=== PATIENT | male | born 1980 | race Caucasian/White ===

== ENCOUNTER 2017-07-19 13:00 | Observation (INO) | payer MEDICAID, SELFPAY ==
[2017-07-19 13:14] VITALS: BP 136/90; PULSE 113; RESP 20; TEMP 37.3; O2SAT 97; BMI 36.9
--- NOTE | 2017-07-19 13:29 | HMH.EDUTC ---
[facility] [place] Disposition Clinical Impression: Dehydration, Tachycardia, Elevated liver enzymes, Viral syndrome Disposition: Still a Patient Condition on Discharge: Fair (sent to ed for eval) Time of Disposition: 11:00 Medical Decision Making Vital Signs: 07/19/17 13:14 07/19/17 14:02 07/19/17 17:43 Temperature 99.2 F 99.2 F Temperature Source Oral Oral Pulse Rate 99 H Pulse Rate [Right Radial] 113 H 113 H Respiratory Rate 20 20 Blood Pressure 137/88 Blood Pressure [Right Arm] 136/90 Blood Pressure [Right Radial Artery] 136/90 Blood Pressure Mean [Right Arm] 105 Blood Pressure Mean [Right Radial Artery] 105 Blood Pressure Source [Right Arm] Automatic Cuff Blood Pressure Source [Right Radial Artery] Automatic Cuff Blood Pressure Position [Right Arm] Sitting Blood Pressure Position [Right Radial Artery] Sitting 02 Sat by Pulse Oximetry 97 97 Oxygen Delivery Method Room Air Room Air - Lab Data Lab Results 07/19/17 13:35: Influenza Type A Ag Negative, Influenza Type B Ag Negative 07/19/17 13:45: WBC 15.5 H, RBC 4.77, Hgb 14.4, Hct 42.4, MCV 89.0, MCH 30.3, MCHC 34.0, RDW 13.0, Plt Count 234, MPV 7.6, Neut % (Auto) 82.2 H, Lymph % (Auto) 7.9 L, [place] % (Auto) 9.5 H, Eos % (Auto) 0.2, Baso % (Auto) 0.2, Neut # (Auto) 12.8 H, Lymph # (Auto) 1.2, [place] # (Auto) 1.5 H, Eos # (Auto) 0.0, Baso # (Auto) 0.0, Total Counted 100, Neutrophils % (Manual) 75, Band Neutrophils % 12.0 H, Lymphocytes % (Manual) 6 L, Monocytes % (Manual) 7, Platelet Estimate Normal, RBC Morphology Normal 07/19/17 13:45: Sodium 129 L, Potassium 3.7, Chloride 95 L, Carbon Dioxide 22, Anion Gap 15.7 H, BUN 9, Creatinine 1.25, Estimated Creat Clear 130, Estimated GFR 65, Est GFR ( Amer) 79, Glucose 132 H, Calcium 8.5, Total Bilirubin 1.5 H, AST 154 H, ALT 236 H, Alkaline Phosphatase 183 H, Total Creatine Kinase 58, CK-MB (CK-2) < 0.5, CK-MB (CK-2) Rel Index 0.9, Troponin I < 0.02, Total Protein 8.3 H, Albumin 3.1 L, Globulin 5.2 H, Albumin/Globulin Ratio 0.6 L, TSH 1.72, Free T4 1.47 H 07/19/17 14:20: Magnesium 2.0 07/19/17 14:45: Chlamy pneumoniae PCR Not detected, Adenovirus (PCR) Not detected, B.parapertussis DNA PCR Not detected, Coronavirus OC43 (PCR) Not detected, Coronavirus HKU1 (PCR) Not detected, Coronavirus 229E (PCR) Not detected, Coronavirus NL63 (PCR) Not detected, Human Metapneumovir PCR Not detected, Influenza A (H1) PCR Not detected, Influ A (H1N1/09) PCR Not detected, Influenza A (H3) PCR Not detected, Influenza Type A (PCR) Not detected, Influenza Type B (PCR) Not detected, M. pneumoniae (PCR) Not detected, Parainfluenza 1 (PCR) Not detected, Parainfluenza 2 (PCR) Not detected, Parainfluenza 3 (PCR) Not detected, Parainfluenza 4 (PCR) Not detected, RSV (PCR) Not detected, Entero/Rhino (PCR) Not detected 07/19/17 15:20: Urine Color Yellow, Urine Appearance Cloudy, Urine pH 6.0, Ur Specific [place] 1.020, Urine Protein 30, Urine Glucose (UA) Negative, Urine Ketones Trace, Urine Blood Trace-i, Urine Nitrate Negative, Urine Bilirubin Negative, Urine Urobilinogen 1.0, Ur Leukocyte Esterase Negative, Urine RBC Occasional, Urine WBC 3-5, Ur Squamous Epith Cells Occasional, Urine Bacteria 2+, Hyaline Casts Occasional 07/19/17 15:45: Lactic Acid 1.9 Result diagrams: 07/21/17 08:50 07/21/17 09:50 Orders (Tests/Meds): ED MEDICATIONS Discontinued Medications Generic Name Dose Route Start Last Admin Trade Name Freq PRN Reason Stop Dose Admin Acetaminophen 650 mg 07/19/17 17:31 07/20/17 22:19 Acetaminophen 325mg Tab PO 08/18/17 17:30 650 mg Q4HP PRN Administration As Needed for Fever or Pain Sodium Chloride 1,000 mls @ 999 mls/hr 07/19/17 14:45 07/19/17 14:55 Sod Chloride 0.9% 1000ml Bag IV 07/19/17 15:45 999 mls/hr .Q1H1M [place] Administration Sodium Chloride 1,000 mls @ 999 mls/hr 07/19/17 17:00 07/19/17 17:06 Sod Chloride 0.9% 1000ml Bag IV 07/19/17 18:00 999 mls/hr .Q1H1M [place] Administratio
--- NOTE | 2017-07-19 13:32 | ED_ITS ---
[facility] [place] Disposition Clinical Impression: Dehydration, Tachycardia, Elevated liver enzymes, Viral syndrome Disposition: Still a Patient Condition on Discharge: Fair (sent to ed for eval) Time of Disposition: 11:00 Medical Decision Making Vital Signs: 07/19/17 13:14 07/19/17 14:02 07/19/17 17:43 Temperature 99.2 F 99.2 F Temperature Source Oral Oral Pulse Rate 99 H Pulse Rate [Right Radial] 113 H 113 H Respiratory Rate 20 20 Blood Pressure 137/88 Blood Pressure [Right Arm] 136/90 Blood Pressure [Right Radial Artery] 136/90 Blood Pressure Mean [Right Arm] 105 Blood Pressure Mean [Right Radial Artery] 105 Blood Pressure Source [Right Arm] Automatic Cuff Blood Pressure Source [Right Radial Artery] Automatic Cuff Blood Pressure Position [Right Arm] Sitting Blood Pressure Position [Right Radial Artery] Sitting 02 Sat by Pulse Oximetry 97 97 Oxygen Delivery Method Room Air Room Air - Lab Data Lab Results 07/19/17 13:35: Influenza Type A Ag Negative, Influenza Type B Ag Negative 07/19/17 13:45: WBC 15.5 H, RBC 4.77, Hgb 14.4, Hct 42.4, MCV 89.0, MCH 30.3, MCHC 34.0, RDW 13.0, Plt Count 234, MPV 7.6, Neut % (Auto) 82.2 H, Lymph % (Auto ) 7.9 L, [place] % (Auto) 9.5 H, Eos % (Auto) 0.2, Baso % (Auto) 0.2, Neut # (Auto ) 12.8 H, Lymph # (Auto) 1.2, [place] # (Auto) 1.5 H, Eos # (Auto) 0.0, Baso # ( Auto) 0.0, Total Counted 100, Neutrophils % (Manual) 75, Band Neutrophils % 12.0 H, Lymphocytes % (Manual) 6 L, Monocytes % (Manual) 7, Platelet Estimate Normal, RBC Morphology Normal 07/19/17 13:45: Sodium 129 L, Potassium 3.7, Chloride 95 L, Carbon Dioxide 22, Anion Gap 15.7 H, BUN 9, Creatinine 1.25, Estimated Creat Clear 130, Estimated GFR 65, Est GFR ( Amer) 79, Glucose 132 H, Calcium 8.5, Total Bilirubin 1.5 H, AST 154 H, ALT 236 H, Alkaline Phosphatase 183 H, Total Creatine Kinase 58, CK-MB (CK-2) < 0.5, CK-MB (CK-2) Rel Index 0.9, Troponin I < 0.02, Total Protein 8.3 H, Albumin 3.1 L, Globulin 5.2 H, Albumin/Globulin Ratio 0.6 L, TSH 1.72, Free T4 1.47 H 07/19/17 14:20: Magnesium 2.0 07/19/17 14:45: Chlamy pneumoniae PCR Not detected, Adenovirus (PCR) Not detected, B.parapertussis DNA PCR Not detected, Coronavirus OC43 (PCR) Not detected, Coronavirus HKU1 (PCR) Not detected, Coronavirus 229E (PCR) Not detected, Coronavirus NL63 (PCR) Not detected, Human Metapneumovir PCR Not detected, Influenza A (H1) PCR Not detected, Influ A (H1N1/09) PCR Not detected , Influenza A (H3) PCR Not detected, Influenza Type A (PCR) Not detected, Influenza Type B (PCR) Not detected, M. pneumoniae (PCR) Not detected, Parainfluenza 1 (PCR) Not detected, Parainfluenza 2 (PCR) Not detected, Parainfluenza 3 (PCR) Not detected, Parainfluenza 4 (PCR) Not detected, RSV (PCR ) Not detected, Entero/Rhino (PCR) Not detected 07/19/17 15:20: Urine Color Yellow, Urine Appearance Cloudy, Urine pH 6.0, Ur Specific [place] 1.020, Urine Protein 30, Urine Glucose (UA) Negative, Urine Ketones Trace, Urine Blood Trace-i, Urine Nitrate Negative, Urine Bilirubin Negative, Urine Urobilinogen 1.0, Ur Leukocyte Esterase Negative, Urine RBC Occasional, Urine WBC 3-5, Ur Squamous Epith Cells Occasional, Urine Bacteria 2+ , Hyaline Casts Occasional 07/19/17 15:45: Lactic Acid 1.9 Result diagrams: 07/21/17 08:50 07/21/17 09:50 Orders (Tests/Meds): ED MEDICATIONS Discontinued Medications Generic Name Dose Route Start Last Admin Trade Name Freq PRN Reason Stop Dose Admin
[2017-07-19 13:35] LABS: UTC Influenza A Antigen Negative (Negative); UTC Influenza B Antigen Negative (Negative)
[2017-07-19 14:02] VITALS: BP 136/90; PULSE 113; RESP 20; TEMP 37.3; O2SAT 97; BMI 36.9
[2017-07-19 14:06] LABS: Basophils % 0.2 % (0.1-2.0); Eosinophils % 0.2 % (0.1-12.0); Hematocrit 42.4 % (42.0-52.0); Hemoglobin 14.4 g/dL (14.1-18.0); Lymphocytes # 1.2 K/mm3 (0.7-4.5); Lymphocytes % 7.9 K/mm3 (10-50); Mean Corpuscular Hemoglobin 30.3 pg (27.0-31.2); Mean Platelet Volume 7.6 fl (7.4-10.4); Monocytes # 1.5 K/mm3 (0.1-1.0); Monocytes % 9.5 % (1.7-9.3); Neutrophils # 12.8 K/mm3 (1.8-7.8); Neutrophils % 82.2 % (37.0-80.0); Platelet Count 234 K/mm3 (142-424); Red Blood Count 4.77 M/mm3 (4.60-6.20); White Blood Count 15.5 K/mm3 (4.8-10.8)
[2017-07-19 14:09] LABS: MANUAL DIFFERENTIAL MANUAL DIFFERENTIAL (MANUAL DIFF)
[2017-07-19 14:29] LABS: Alanine Aminotransferase 236 U/L (12-78); Albumin Level 3.1 gm/dL (3.4-5.0); Albumin/Globulin Ratio 0.6 (1.1-1.8); Alkaline Phosphatase 183 U/L (46-116); Anion Gap 15.7 mEq/L (5-15); Aspartate Amino Transferase 154 U/L (15-37); Bilirubin,Total 1.5 mg/dL (0.2-1.0); Blood Urea Nitrogen 9 mg/dL (7-18); Calcium 8.5 mg/dL (8.5-10.1); Carbon Dioxide 22 mmol/L (21.0-32.0); Chloride 95 mmol/L (98-107); Creatine Kinase 58 U/L (39-308); Creatinine Clearance Estimated 130 mL/min (0-300); Creatinine,Serum 1.25 mg/dL (0.70-1.30); Estimated Glomerular Filt Rate 65 ml/min (>60); Free T4 (Free Thyroxine) 1.47 ng/dl (0.76-1.46); GFR (African American) 79 ML/MIN (>60); Globulin 5.2 gm/dl (1.3-3.2); Glucose 132 mg/dL (74-106); Lymphocytes % 6 % (10-50); Monocytes % 7 % (2-9); Neutrophils % 75 % (42-76); Platelet Estimate Normal; Potassium 3.7 mmoL/L (3.5-5.1); RBC Morphology Normal; Sodium 129 mmol/L (136-145); Thyroid Stimulating Hormone 1.72 uIU/ml (0.358-3.740); Total Cells Counted 100; Total Protein,Serum 8.3 gm/dL (6.4-8.2); Troponin I < 0.02 ng/ml (0.00-0.06)
[2017-07-19 14:31] LABS: CKMB Relative Index 0.9 U/L (0-4.0); Creatine Kinase MB < 0.5 mg/ml (0.0-3.6)
--- NOTE | 2017-07-19 14:40 | XR_ITS ---
XR chest 2V, XR acute abdomen series Ordering Physician: Michael Galvan Patient Age: 37 years: Male HISTORY: ITS.REASON: fever Nausea vomiting diarrhea fever TECHNIQUE: PA and lateral chest COMPARISON :Acute abdominal series from today. No studies prior to today ----CHEST PA AND LATERAL:-- Suboptimal inspiration. Diaphragms only down to the anterior fourth rib. Mild bibasilar atelectasis but no convincing focal consolidation or pneumonia. No pleural effusions no pneumothorax. Chest wall and T-spine intact. The heart is upper normal in size due to the less than optimal inspiration. Mediastinal structures unremarkable. --ACUTE ABDOMINAL SERIES- Upright chest followed by flat and upright views of abdomen performed. The chest film again demonstrates suboptimal inspiration with mild bibasilar atelectasis but no active disease of the chest. No free air seen beneath the diaphragm. The flat and upright views of abdomen show no bowel dilatation or obstruction. Only Minimal gas throughout large bowel. With scattered small air-fluid levels throughout the right & transverse colon. This likely reflect diarrhea & liquid stool .. Only scant air and gas throughout the small bowel is unremarkable. No bowel dilatation or obstruction. No organomegaly. No significant calcifications. Only scattered benign phleboliths at the inferior pelvic basin ...... IMPRESSION......... 1.. Abdomen:. No bowel dilatation or obstruction. No free air beneath diaphragm .. Scattered small air-fluid levels throughout the right & transverse colon suggesting minimal liquid stool. .. Otherwise unremarkable bowel gas pattern. Chest.: Nothing definitely acute. Suboptimal inspiration with minor basilar atelectasis.
--- NOTE | 2017-07-19 14:43 | HMH.EDGENADL ---
ED Disposition Clinical Impression: Dehydration, Tachycardia, Elevated liver enzymes, Viral syndrome Disposition: Still a Patient Condition on Discharge: Fair Referrals: Timur Guardado MD [Staff Physician] - - Critical Care Critical Care Time: No Attestation: On 07/19/17, the high probability of a clinically significant, sudden or life threatening deterioration of the following system(s) required my full and direct attention, intervention and personal management. The time I documented below is in addition to time spent performing reported procedures but includes the following listed in this critical care notation. Medical Decision Making Vital Signs: 07/19/17 13:14 07/19/17 14:02 Temperature 99.2 F 99.2 F Temperature Source Oral Oral Pulse Rate [Right Radial] 113 H 113 H Respiratory Rate 20 20 Blood Pressure [Right Arm] 136/90 Blood Pressure [Right Radial Artery] 136/90 Blood Pressure Mean [Right Arm] 105 Blood Pressure Mean [Right Radial Artery] 105 Blood Pressure Source [Right Arm] Automatic Cuff Blood Pressure Source [Right Radial Artery] Automatic Cuff Blood Pressure Position [Right Arm] Sitting Blood Pressure Position [Right Radial Artery] Sitting 02 Sat by Pulse Oximetry 97 97 Oxygen Delivery Method Room Air Room Air - Lab Data Lab Results 07/19/17 13:35: Influenza Type A Ag Negative, Influenza Type B Ag Negative 07/19/17 13:45: WBC 15.5 H, RBC 4.77, Hgb 14.4, Hct 42.4, MCV 89.0, MCH 30.3, MCHC 34.0, RDW 13.0, Plt Count 234, MPV 7.6, Neut % (Auto) 82.2 H, Lymph % (Auto) 7.9 L, [place] % (Auto) 9.5 H, Eos % (Auto) 0.2, Baso % (Auto) 0.2, Neut # (Auto) 12.8 H, Lymph # (Auto) 1.2, [place] # (Auto) 1.5 H, Eos # (Auto) 0.0, Baso # (Auto) 0.0, Total Counted 100, Neutrophils % (Manual) 75, Band Neutrophils % 12.0 H, Lymphocytes % (Manual) 6 L, Monocytes % (Manual) 7, Platelet Estimate Normal, RBC Morphology Normal 07/19/17 13:45: Sodium 129 L, Potassium 3.7, Chloride 95 L, Carbon Dioxide 22, Anion Gap 15.7 H, BUN 9, Creatinine 1.25, Estimated Creat Clear 130, Estimated GFR 65, Est GFR ( Amer) 79, Glucose 132 H, Calcium 8.5, Total Bilirubin 1.5 H, AST 154 H, ALT 236 H, Alkaline Phosphatase 183 H, Total Creatine Kinase 58, CK-MB (CK-2) < 0.5, CK-MB (CK-2) Rel Index 0.9, Troponin I < 0.02, Total Protein 8.3 H, Albumin 3.1 L, Globulin 5.2 H, Albumin/Globulin Ratio 0.6 L, TSH 1.72, Free T4 1.47 H 07/19/17 14:20: Magnesium 2.0 07/19/17 14:45: Chlamy pneumoniae PCR Not detected, Adenovirus (PCR) Not detected, B.parapertussis DNA PCR Not detected, Coronavirus OC43 (PCR) Not detected, Coronavirus HKU1 (PCR) Not detected, Coronavirus 229E (PCR) Not detected, Coronavirus NL63 (PCR) Not detected, Human Metapneumovir PCR Not detected, Influenza A (H1) PCR Not detected, Influ A (H1N1/09) PCR Not detected, Influenza A (H3) PCR Not detected, Influenza Type A (PCR) Not detected, Influenza Type B (PCR) Not detected, M. pneumoniae (PCR) Not detected, Parainfluenza 1 (PCR) Not detected, Parainfluenza 2 (PCR) Not detected, Parainfluenza 3 (PCR) Not detected, Parainfluenza 4 (PCR) Not detected, RSV (PCR) Not detected, Entero/Rhino (PCR) Not detected 07/19/17 15:20: Urine Color Yellow, Urine Appearance Cloudy, Urine pH 6.0, Ur Specific [place] 1.020, Urine Protein 30, Urine Glucose (UA) Negative, Urine Ketones Trace, Urine Blood Trace-i, Urine Nitrate Negative, Urine Bilirubin Negative, Urine Urobilinogen 1.0, Ur Leukocyte Esterase Negative, Urine RBC Occasional, Urine WBC 3-5, Ur Squamous Epith Cells Occasional, Urine Bacteria 2+, Hyaline Casts Occasional 07/19/17 15:45: Lactic Acid 1.9 Result diagrams: 07/19/17 13:45 07/19/17 13:45 Orders (Tests/Meds): ED MEDICATIONS Generic Name Dose Route Start Last Admin Trade Name Freq PRN Reason Stop Dose Admin Sodium Chloride 1,000 mls @ 999 mls/hr 07/19/17 17:00 07/19/17 17:06 Sod Chloride 0.9% 1000ml Bag IV 07/19/17 18:00 999 mls/hr .Q1H1M [place] Administration Disc
--- NOTE | 2017-07-19 14:46 | ED_ITS ---
ED Disposition Clinical Impression: Dehydration, Tachycardia, Elevated liver enzymes, Viral syndrome Disposition: Still a Patient Condition on Discharge: Fair Referrals: Timur Guardado MD [Staff Physician] - - Critical Care Critical Care Time: No Attestation: On 07/19/17, the high probability of a clinically significant, sudden or life threatening deterioration of the following system(s) required my full and direct attention, intervention and personal management. The time I documented below is in addition to time spent performing reported procedures but includes the following listed in this critical care notation. Medical Decision Making Vital Signs: 07/19/17 13:14 07/19/17 14:02 Temperature 99.2 F 99.2 F Temperature Source Oral Oral Pulse Rate [Right Radial] 113 H 113 H Respiratory Rate 20 20 Blood Pressure [Right Arm] 136/90 Blood Pressure [Right Radial Artery] 136/90 Blood Pressure Mean [Right Arm] 105 Blood Pressure Mean [Right Radial Artery] 105 Blood Pressure Source [Right Arm] Automatic Cuff Blood Pressure Source [Right Radial Artery] Automatic Cuff Blood Pressure Position [Right Arm] Sitting Blood Pressure Position [Right Radial Artery] Sitting 02 Sat by Pulse Oximetry 97 97 Oxygen Delivery Method Room Air Room Air - Lab Data Lab Results 07/19/17 13:35: Influenza Type A Ag Negative, Influenza Type B Ag Negative 07/19/17 13:45: WBC 15.5 H, RBC 4.77, Hgb 14.4, Hct 42.4, MCV 89.0, MCH 30.3, MCHC 34.0, RDW 13.0, Plt Count 234, MPV 7.6, Neut % (Auto) 82.2 H, Lymph % (Auto ) 7.9 L, [place] % (Auto) 9.5 H, Eos % (Auto) 0.2, Baso % (Auto) 0.2, Neut # (Auto ) 12.8 H, Lymph # (Auto) 1.2, [place] # (Auto) 1.5 H, Eos # (Auto) 0.0, Baso # ( Auto) 0.0, Total Counted 100, Neutrophils % (Manual) 75, Band Neutrophils % 12.0 H, Lymphocytes % (Manual) 6 L, Monocytes % (Manual) 7, Platelet Estimate Normal, RBC Morphology Normal 07/19/17 13:45: Sodium 129 L, Potassium 3.7, Chloride 95 L, Carbon Dioxide 22, Anion Gap 15.7 H, BUN 9, Creatinine 1.25, Estimated Creat Clear 130, Estimated GFR 65, Est GFR ( Amer) 79, Glucose 132 H, Calcium 8.5, Total Bilirubin 1.5 H, AST 154 H, ALT 236 H, Alkaline Phosphatase 183 H, Total Creatine Kinase 58, CK-MB (CK-2) < 0.5, CK-MB (CK-2) Rel Index 0.9, Troponin I < 0.02, Total Protein 8.3 H, Albumin 3.1 L, Globulin 5.2 H, Albumin/Globulin Ratio 0.6 L, TSH 1.72, Free T4 1.47 H 07/19/17 14:20: Magnesium 2.0 07/19/17 14:45: Chlamy pneumoniae PCR Not detected, Adenovirus (PCR) Not detected, B.parapertussis DNA PCR Not detected, Coronavirus OC43 (PCR) Not detected, Coronavirus HKU1 (PCR) Not detected, Coronavirus 229E (PCR) Not detected, Coronavirus NL63 (PCR) Not detected, Human Metapneumovir PCR Not detected, Influenza A (H1) PCR Not detected, Influ A (H1N1/09) PCR Not detected , Influenza A (H3) PCR Not detected, Influenza Type A (PCR) Not detected, Influenza Type B (PCR) Not detected, M. pneumoniae (PCR) Not detected, Parainfluenza 1 (PCR) Not detected, Parainfluenza 2 (PCR) Not detected, Parainfluenza 3 (PCR) Not detected, Parainfluenza 4 (PCR) Not detected, RSV (PCR ) Not detected, Entero/Rhino (PCR) Not detected 07/19/17 15:20: Urine Color Yellow, Urine Appearance Cloudy, Urine pH 6.0, Ur Specific [place] 1.020, Urine Protein 30, Urine Glucose (UA) Negative, Urine Ketones Trace, Urine Blood Trace-i, Urine Nitrate Negative, Urine Bilirubin Negative, Urine Urobilinogen 1.0, Ur Leukocyte Esterase Negative, Urine RBC Occasional, Urine WBC 3-5, Ur Squamous Epith Cells Occasional, Urine Bacteria 2+
[2017-07-19 14:59] LABS: Adenovirus,PCR Not Detected (NotDetected); Bordetella Pertussis Not Detected (NotDetected); Chlamydophila Pneumoniae, PCR Not Detected (NotDetected); Coronavirus 229E Not Detected (NotDetected); Coronavirus NL63 Not Detected (NotDetected); Coronavirus OC43 Not Detected (NotDetected); Coronovirus HKU1,PCR Not Detected (NotDetected); Human Metapneumovirus Not Detected (NotDetected); Influenza A, PCR Not Detected (NotDetected); Influenza AH1, 2009 Not Detected (NotDetected); Influenza AH1, PCR Not Detected (NotDetected); Influenza AH3,PCR Not Detected (NotDetected); Influenza B, PCR Not Detected (NotDetected); Mycoplasma Pneumoniae, PCR Not Detected (NotDected); Parainfluenza 1, PCR Not Detected (NotDetected); Parainfluenza 2, PCR Not Detected (NotDetected); Parainfluenza 3, PCR Not Detected (NotDetected); Parainfluenza 4, PCR Not Detected (NotDetected); Respiratory Syncytial Virus Not Detected (NotDetected); Rhinovirus/Enterovirus Not Detected (NotDetected)
[2017-07-19 15:33] LABS: Microscopic, Urine URINE MICROSCOPIC (MICROSCOPIC)
[2017-07-19 15:34] LABS: Appearance,Urine CLOUDY (Clear); Blood, Urine TRACE-I (Negative); Glucose,Urine (UA) Negative (Negative); Ketones,Urine TRACE (Negative); Leukocyte Esterase,Urine Negative (Negative); Nitrate,Urine Negative (Negative); Protein,Urine 30 (Negative)
[2017-07-19 15:35] LABS: Bilirubin,Urine Negative (Negative); Color,Urine Yellow (Yellow)
[2017-07-19 15:45] LABS: Bacteria,Urine 2+ /lpf; Hyaline Casts,Urine Occasional #/lpf (0); RBC,Urine Occasional #/hpf (0-3); Squamous Epithelial Cell,Urine Occasional #/hpf (0-5)
[2017-07-19 16:11] LABS: Lactic Acid 1.9 mmol/L (0.4-2.0)
[2017-07-19 17:43] VITALS: BP 137/88; PULSE 99; O2SAT 98
[2017-07-19 17:51] VITALS: BP 121/90; PULSE 107; RESP 20; TEMP 36.9; O2SAT 99; BMI 37.3
[2017-07-19 18:35] LABS: Adenovirus F 40/41, stool Not Detected (NotDetected); Astrovirus Not Detected (NotDetected); Campylobacter Not Detected (NotDetected); Cryptosporidium Not Detected (NotDetected); Cyclospora Cayetanesis Not Detected (NotDetected); Entamoeba histolytica Not Detected (NotDetected); Enteroaggregative E coli Not Detected (NotDetected); Enteropathogenic E coli Not Detected (NotDetected); Enterotoxigenic E coli Not Detected (NotDetected); Giardia lamblia Not Detected (NotDetected); Norovirus Not Detected (NotDetected); Plesimonas Shigalloides, PCR Not Detected (NotDetected); Rotavirus A Not Detected (NotDetected); Salmonella, PCR Not Detected (NotDetected); Sapovirus Not Detected (NotDetected); Shiga-like toxin E coli Not Detected (NotDetected); Shigella Enterovasive E coli Not Detected (NotDetected); Vibrio Cholerae Not Detected (NotDetected); Vibrio, PCR Not Detected (NotDetected); Yersinia Entercolitica, PCR Not Detected (NotDetected)
[2017-07-19 20:00] VITALS: BP 149/94; PULSE 118; RESP 18; TEMP 39.1; O2SAT 97
[2017-07-19 21:02] LABS: Clostridium Difficile A/B, PCR Detected (NotDetected)
--- NOTE | 2017-07-20 00:22 | PC.NURSE ---
pt triggered sepsis in the ED treated per protocol, will continue to monitor pt and new lab values.
--- NOTE | 2017-07-20 03:38 | PC.NURSE ---
2099-notified by Chapin in lab of positive C-Diff result, pt in contact isolation education given no changes noted since previous assessment, pt states he feels a little better than he did when he came in, pt states bowel movements are still liquid but have decreased in size to a smear, temperature of 102.4 noted at 1999, treated with tylenol per aug, temperature upon reassessment was 99.6, bowel sounds are hyperactive, breath sounds are clear throughout, vss, no acute distress noted at this time, call light in reach, family at bedside, will continue to monitor.
[2017-07-20 04:55] VITALS: BP 142/86; PULSE 129; RESP 20; TEMP 39; O2SAT 94
--- NOTE | 2017-07-20 04:57 | PC.NURSE ---
TEDS ARE OFF AT THIS TIME
--- NOTE | 2017-07-20 05:00 | PC.NURSE ---
NURSE AWARE ABOUT PATIENTS TEMP AND PULSE RATE
[2017-07-20 05:11] VITALS: PULSE 96; TEMP 37.8
[2017-07-20 06:35] LABS: Basophils % 0.2 % (0.1-2.0); Eosinophils # 0.1 K/mm3 (0.0-0.4)
[2017-07-20 06:43] LABS: Alanine Aminotransferase 170 U/L (12-78); Albumin Level 2.5 gm/dL (3.4-5.0); Albumin/Globulin Ratio 0.6 (1.1-1.8); Alkaline Phosphatase 160 U/L (46-116); Anion Gap 15.4 mEq/L (5-15); Aspartate Amino Transferase 95 U/L (15-37); Bilirubin,Total 1.9 mg/dL (0.2-1.0); Blood Urea Nitrogen 8 mg/dL (7-18); Calcium 7.8 mg/dL (8.5-10.1); Carbon Dioxide 21 mmol/L (21.0-32.0); Chloride 98 mmol/L (98-107); Creatinine Clearance Estimated 131 mL/min (0-300); Creatinine,Serum 1.25 mg/dL (0.70-1.30); Eosinophils % 0.4 % (0.1-12.0); Estimated Glomerular Filt Rate 65 ml/min (>60); GFR (African American) 79 ML/MIN (>60); Globulin 4.4 gm/dl (1.3-3.2); Glucose 113 mg/dL (74-106); Hematocrit 37.9 % (42.0-52.0); Hemoglobin 12.7 g/dL (14.1-18.0); Lymphocytes # 0.9 K/mm3 (0.7-4.5); Lymphocytes % 6.4 K/mm3 (10-50); Magnesium 1.6 mg/dL (1.4-2.2); Mean Corpuscular HGB Conc 33.6 g/dL (31.8-35.4); Mean Corpuscular Hemoglobin 30.2 pg (27.0-31.2); Mean Corpuscular Volume 89.9 fl (80-94); Mean Platelet Volume 7.7 fl (7.4-10.4); Monocytes # 0.9 K/mm3 (0.1-1.0); Monocytes % 5.9 % (1.7-9.3); Neutrophils # 12.9 K/mm3 (1.8-7.8); Neutrophils % 87.2 % (37.0-80.0); Platelet Count 212 K/mm3 (142-424); Potassium 3.4 mmoL/L (3.5-5.1); Red Blood Count 4.22 M/mm3 (4.60-6.20); Red Cell Distribution Width 13.3 % (11.5-17.5); Sodium 131 mmol/L (136-145); Total Protein,Serum 6.9 gm/dL (6.4-8.2); White Blood Count 14.8 K/mm3 (4.8-10.8)
[2017-07-20 06:44] LABS: MANUAL DIFFERENTIAL MANUAL DIFFERENTIAL (MANUAL DIFF)
--- NOTE | 2017-07-20 07:05 | HMH.PHAVTE ---
[facility] Pharmacy VTE Monitoring - Patient Demographics Admission date: 07/19/17 Report Date: 07/20/17 Time: 07:05 Allergies/Adverse Reactions: Patient Allergies No Known Allergies Allergy (Verified 07/19/17 13:23) Height: 1.75 m Weight: 114.85 kg Patient Problems: Current Active Problems Dehydration (Acute) Tachycardia (Acute) Elevated liver enzymes (Acute) Viral syndrome (Acute) - VTE Risk Labs: VTE Related Lab Results Hgb 12.7 g/dL (14.1-18.0) L D 07/20/17 06:20 Hct 37.9 % (42.0-52.0) L 07/20/17 06:20 Plt Count 212 K/mm3 (142-424) 07/20/17 06:20 BUN 8 mg/dL (7-18) 07/20/17 06:20 Creatinine 1.25 mg/dL (0.70-1.30) 07/20/17 06:20 Estimated Creat Clear 131 mL/min (0-300) 07/20/17 06:20 Was VTE Risk Assessment Performed: Yes VTE Score: 1 VTE Risk Level: Very Low Risk - Prophylaxis VTE Prophylaxis Ordered?: Yes Types of VTE Prophylaxis: TEDS Knee High Location of Applied Device: Bilateral Lower Extremeties
--- NOTE | 2017-07-20 07:08 | PC.NURSE ---
report given to padilla Hoskins RN
--- NOTE | 2017-07-20 07:21 | PC.NURSE ---
REPORT GIVEN TO Lawrence MACHADO W/C
--- NOTE | 2017-07-20 07:39 | PC.NURSE ---
0720 - received bedside report from Esther Kim RN
[2017-07-20 08:00] VITALS: BP 127/80; PULSE 130; RESP 18; TEMP 36.8; O2SAT 95
--- NOTE | 2017-07-20 09:43 | P.HP_ITS ---
Addendum entered and electronically signed by Roselyn Zhu APRN 07/20/17 15: 35: Original Note: *Admission Date: 07/19/17 <Roselyn Zhu 07/20/17 09:43> *Chief complaint: fever; diarrhea <Roselyn Zhu 07/20/17 09:43> *History of present illness: Mr Ochoa is a 37 years old white male who has moved back to [place] this past week from [place] and has no primary care physician. He developed a fever 4 days ago and then eveloped body aches and diarrhea yesterday. The fever persisted and he began feeling weak. He thus presented to the urgent treatment center. Flu test was negative. He looked pale and weak so he was sent to the emergency department for further evaluation. In the ER he denied chest pain, shortness of breath, ST, RN, palpitations, abdominal pain and nausea or vomiting. He did admit to having a watery diarrhea. He noted that his stomach felt full. He denied having dysuria or hematuria. He was admitted for further evaluation and treatment. This AM he has had no further diarrhea; He has eaten most of his breakfast. <Roselyn Zhu 07/20/17 15:00> [facility] History Medical History: Reports:: Anxiety Denies:: Cancer, Cardiomyopathy, Chronic Obstructive Pulmonary Disease (COPD) , Coronary Artery Disease, Cerebrovascular Accident, Depression, Diabetes Mellitus Type 1, Diabetes Mellitus Type 2, Gastroesophageal Reflux Disease(GERD) , Internal Pacemaker, MRSA, Palpitations, Renal Disease, Seizures, Urinary Tract Infection <Roselyn Zhu 07/20/17 15:00> Other Medical History: Denies: Anemia, Arthritis <Roselyn Zhu 07/20/17 15: 00> Laterality Cases: Bilateral: Myringotomy (Ear Tubes) <Roselyn Zhu 09:43> Other Surgeries: No: Pacemaker <Roselyn Zhu 07/20/17 09:43> Amputation: No <Roselyn Zhu 07/20/17 09:43> Fractures: No <Roselyn Zhu 07/20/17 09:43> - *Social History Educational Level: Attended High School <Roselyn Zhu 07/20/17 09:43> Smoking Status: Never smoker <Roselyn Zhu 07/20/17 09:43> Alcohol Intake: current <Roselyn Zhu 07/20/17 15:00> Alcohol Intake Frequency:: a few times a week <ZhuRoselyn 07/20/17 09:43> Occupational Status: unemployed <MarkoRoselyn 07/20/17 09:43> Housing: house <MarkoRoselyn 07/20/17 09:43> Household Members: friend(s), other <MarkoRoselyn 07/20/17 09:43> - Psychiatric History Expresses thoughts of harming self/others: None <MarkoRoselyn Kaur 07/20/17 09: 43> Suicide Plan Description: No Plan <MarkoRoselyn 07/20/17 09:43> Pschychiatric History:: Reports:: Anxiety <MarkoRoselyn 07/20/17 15:00> *Family Hx:: Diabetes, Heart Attack, Hypertension, Kidney Disease <Zhu Roselyn 07/20/17 09:43> Review of Systems - Constitutional Reports body ache(s), Reports fever(s) <MarkoRoselyn 07/20/17 15:00> - ENT Denies headache(s), Denies nasal congestion, Denies sore throat <Marko Roselyn 07/20/17 15:00> - *Cardiovascular Denies chest pain, Denies shortness of breath, Denies irregular heart rhythm, Denies leg swelling <MarkoRoselyn 07/20/17 15:00> - *Respiratory Denies chest congestion, Denies cough, Denies shortness of breath <Zhu Roselyn 07/20/17 15:00> - *Gastrointestinal Reports belching, Reports bloating, Reports change in bowel habits, Reports loose stools (watery diarrhea), Denies abdominal pain, Denies constipation, Denies bright, red blood in stools, Denies nausea, Denies vomiting <Zhu Roselyn 07/20/17 15:00> - *Genitourinary Denies difficulty urinating, Denies painful urination <ZhuRoselyn 15:00> - *Musculoskeletal Report
--- NOTE | 2017-07-20 09:43 | HMH.HP ---
*Admission Date: 07/19/17 <Roselyn Zhu 07/20/17 09:43> *Chief complaint: fever; diarrhea <Roselyn Zhu 07/20/17 09:43> *History of present illness: Mr Ochoa is a 37 years old white male who has moved back to [place] this past week from [place] and has no primary care physician. He developed a fever 4 days ago and then eveloped body aches and diarrhea yesterday. The fever persisted and he began feeling weak. He thus presented to the urgent treatment center. Flu test was negative. He looked pale and weak so he was sent to the emergency department for further evaluation. In the ER he denied chest pain, shortness of breath, ST, RN, palpitations, abdominal pain and nausea or vomiting. He did admit to having a watery diarrhea. He noted that his stomach felt full. He denied having dysuria or hematuria. He was admitted for further evaluation and treatment. This AM he has had no further diarrhea; He has eaten most of his breakfast. <Roselyn Zhu 07/20/17 15:00> [facility] History Medical History: Reports:: Anxiety Denies:: Cancer, Cardiomyopathy, Chronic Obstructive Pulmonary Disease (COPD), Coronary Artery Disease, Cerebrovascular Accident, Depression, Diabetes Mellitus Type 1, Diabetes Mellitus Type 2, Gastroesophageal Reflux Disease(GERD), Internal Pacemaker, MRSA, Palpitations, Renal Disease, Seizures, Urinary Tract Infection <Roselyn Zhu 07/20/17 15:00> Other Medical History: Denies: Anemia, Arthritis <Roselyn Zhu 07/20/17 15:00> Laterality Cases: Bilateral: Myringotomy (Ear Tubes) <Roselyn Zhu 07/20/17 09:43> Other Surgeries: No: Pacemaker <Roselyn Zhu 07/20/17 09:43> Amputation: No <Roselyn Zhu 07/20/17 09:43> Fractures: No <Roselyn Zhu 07/20/17 09:43> - *Social History Educational Level: Attended High School <Roselyn Zhu 07/20/17 09:43> Smoking Status: Never smoker <Roselyn Zhu 07/20/17 09:43> Alcohol Intake: current <Roselyn Zhu 07/20/17 15:00> Alcohol Intake Frequency:: a few times a week <Roselyn Zhu 07/20/17 09:43> Occupational Status: unemployed <Roselyn Zhu 07/20/17 09:43> Housing: house <Roselyn Zhu 07/20/17 09:43> Household Members: friend(s), other <Roselyn Zhu 07/20/17 09:43> - Psychiatric History Expresses thoughts of harming self/others: None <Roselyn Zhu 07/20/17 09:43> Suicide Plan Description: No Plan <Roselyn Zhu 07/20/17 09:43> Pschychiatric History:: Reports:: Anxiety <Roselyn Zhu 07/20/17 15:00> *Family Hx:: Diabetes, Heart Attack, Hypertension, Kidney Disease <Roselyn Zhu 07/20/17 09:43> Review of Systems - Constitutional Reports body ache(s), Reports fever(s) <MarkoRoselyn 07/20/17 15:00> - ENT Denies headache(s), Denies nasal congestion, Denies sore throat <MarkoRoselyn 07/20/17 15:00> - *Cardiovascular Denies chest pain, Denies shortness of breath, Denies irregular heart rhythm, Denies leg swelling <Roselyn Zhu 07/20/17 15:00> - *Respiratory Denies chest congestion, Denies cough, Denies shortness of breath <MarkoRoselyn 07/20/17 15:00> - *Gastrointestinal Reports belching, Reports bloating, Reports change in bowel habits, Reports loose stools (watery diarrhea), Denies abdominal pain, Denies constipation, Denies bright, red blood in stools, Denies nausea, Denies vomiting <MarkoRoselyn 07/20/17 15:00> - *Genitourinary Denies difficulty urinating, Denies painful urination <ZhuRoselyn 07/20/17 15:00> - *Musculoskeletal Reports body aches, Denies abnormal walking <ZhuRoselyn 07/20/17 15:00> - *Neurologic Reports weakness, Denies abnormal walking <ZhuRoselyn 07/20/17 15:00> - Psychiatric Reports anxiety <Roselyn Zhu - 07/20/17 15:00> Meds Home Medications Medication Instructions Recorded Confirmed Type No Known Home Medications [No 07/19/17 07/19/17 History Known Home Medications] <Timur Guardado - 07/20/17 17:24>
[2017-07-20 10:29] LABS: Lymphocytes % 7 % (10-50); Monocytes % 7 % (2-9); Neutrophils % 77 % (42-76); Platelet Estimate Normal; RBC Morphology Normal; Total Cells Counted 100
[2017-07-20 13:19] VITALS: BMI 37.5
--- NOTE | 2017-07-20 13:19 | PC.NURSE ---
Drug Monograph for Flagyl and patient education for C difficile printed and reviewed with patient. Pt c/o of a bad taste and smell . Informed pt that this is a side effect of Flagyl. Pt verbalized understanding.
--- NOTE | 2017-07-20 14:36 | PC.NURSE ---
Interdisciplinary team coordination with dietary, nursing, pharmacy, and case management. Discussed pt care and discharge plans.
--- NOTE | 2017-07-20 15:52 | PC.NURSE ---
Pt is A&Ox3 this shift. Afebrile. Denies pain. Heart rate reg. Lungs CTA. Abd firm, nontender /c active BS x4 quads. Pt reports having 5 episodes of liquid diarrhea thus far this shift. IV (R)AC infusing 0.9%NaCL @ 125ml/hr /s difficulty. No s/s of infiltration/infection at insertion site. Pt educated on Flagyl and C-diff this shift. Pt c/o bad taste in mouth since starting Flagyl this AM. Pt wears BLE knee high JESSENIA hose. Will continue to monitor.
[2017-07-20 16:00] VITALS: BP 149/90; PULSE 120; RESP 18; TEMP 39.2; O2SAT 100
[2017-07-20 20:00] VITALS: O2SAT 99
[2017-07-20 20:24] VITALS: BP 132/86; PULSE 106; RESP 18; TEMP 37; O2SAT 99
[2017-07-21 04:00] VITALS: BP 125/79; PULSE 109; RESP 18; TEMP 36.6; O2SAT 98
--- NOTE | 2017-07-21 07:07 | PC.NURSE ---
PATIENT REFUSING TO WEAR NO SKID SOCKS OR JESSENIA HOSE DUE TO EXPLOSIVE DIARRHEA. PATIENT C/O CHILLING HAD A LOW GRADE TEMP OF 99.8. WAS GIVEN TYLENOL WHICH WAS EFFECTIVE. PATIENT STATES HE HAS A METALLIC TASTE IN HIS MOUTH. HEART RATE REMAINS TACHY BUT B/P IS STABLE. STATES HE HAD FEWER DIARRHEA EPISODES LAST NIGHT. PATIENT SLEPT ALL NIGHT WITHOUT WAKING. SITTING UP IN BED EATING BREAKFAST AT THIS TIME. CALL LIGHT IN REACH. NO S/S OF DISTRESS. WILL CONTINUE TO MONITOR.
[2017-07-21 07:59] VITALS: BP 127/83; PULSE 100; RESP 18; TEMP 36.5; O2SAT 97
--- NOTE | 2017-07-21 08:11 | HMH.ACPN2 ---
<Roselyn Zhu - Last Filed: 07/21/17 08:11> Internal Medicine - PN: Subj *Date: 07/21/17 *Time: 08:11 Interval history: Feeling better; less bloated; minimal diarrhea; no nausea or vomiting; food tastes funny with ABX; voiding QS; denies CP and SOB Exam Vital signs and Labs for Last 24 Hours: Temp Pulse Resp BP Pulse Ox 97.7 F 100 H 18 127/83 97 07/21/17 07:59 07/21/17 07:59 07/21/17 07:59 07/21/17 07:59 07/21/17 07:59 Laboratory Results - last 24 hr 07/20/17 06:20: Total Counted 100, Neutrophils % (Manual) 77 H, Band Neutrophils % 9.0 H, Lymphocytes % (Manual) 7 L, Monocytes % (Manual) 7, Platelet Estimate Normal, RBC Morphology Normal I & O for Last 24 hours: Intake & Output 07/18/17 07/19/17 07/20/17 07/21/17 11:59 11:59 11:59 11:59 Intake Total 2575 / 2575 3796 / 3796 Balance 2575 / 2575 3796 / 3796 Weight 253 lb 3.2 oz 253 lb 1.451 oz - Constitutional no acute distress - *Routine Respiratory Exam Present: CTA bilaterally (A&P) - *Routine Cardiovascular Exam Present: RRR - *Routine Abdominal Exam Present: soft, normoactive bowel sounds. Absent: tenderness - *Routine Extremities Exam Absent: edema, full ROM - *Routine Neurological Exam Present: alert, oriented X3 Assessment and Plan (1) Clostridium difficile colitis Current visit: Yes Status: Acute Category: Medical Code(s): A04.72 - Enterocolitis due to Clostridium difficile, not specified as recurrent (2) Dehydration Current visit: Yes Status: Acute Category: Medical Code(s): E86.0 - Dehydration (3) Elevated liver enzymes Current visit: Yes Status: Acute Category: Medical Code(s): R74.8 - Abnormal levels of other serum enzymes - Assessment and plan all Dx Assessment and Plan for all problems:: repeat labs this AM <Timur Guardado - Last Filed: 07/21/17 08:31> Internal Medicine - PN: Subj *Date: 01/23/18 *Time: 08:29 Exam Vital signs and Labs for Last 24 Hours: Temp Pulse Resp BP Pulse Ox 97.7 F 100 H 18 127/83 97 07/21/17 07:59 07/21/17 07:59 07/21/17 07:59 07/21/17 07:59 07/21/17 07:59 Laboratory Results - last 24 hr 07/20/17 06:20: Total Counted 100, Neutrophils % (Manual) 77 H, Band Neutrophils % 9.0 H, Lymphocytes % (Manual) 7 L, Monocytes % (Manual) 7, Platelet Estimate Normal, RBC Morphology Normal I & O for Last 24 hours: Intake & Output 07/18/17 07/19/17 07/20/17 07/21/17 11:59 11:59 11:59 11:59 Intake Total 2575 / 2575 3796 / 3796 Balance 2575 / 2575 3796 / 3796 Weight 253 lb 3.2 oz 253 lb 1.451 oz Assessment and Plan (1) Clostridium difficile colitis Current visit: Yes Status: Acute Category: Medical Code(s): A04.72 - Enterocolitis due to Clostridium difficile, not specified as recurrent (2) Dehydration Current visit: Yes Status: Acute Category: Medical Code(s): E86.0 - Dehydration (3) Elevated liver enzymes Current visit: Yes Status: Acute Category: Medical Code(s): R74.8 - Abnormal levels of other serum enzymes - Assessment and plan all Dx Assessment and Plan for all problems:: States he had several bouts of explosive diarrhea yesterday but has slowed over night and has some form this AM. If labs OK this AM, may discharge later today.
[2017-07-21 09:01] LABS: Basophils % 0.1 % (0.1-2.0); Eosinophils # 0.1 K/mm3 (0.0-0.4); Eosinophils % 0.5 % (0.1-12.0); Hematocrit 35.2 % (42.0-52.0); Hemoglobin 11.6 g/dL (14.1-18.0); Lymphocytes # 0.8 K/mm3 (0.7-4.5); Lymphocytes % 4.5 K/mm3 (10-50); Mean Corpuscular HGB Conc 32.9 g/dL (31.8-35.4); Mean Corpuscular Hemoglobin 29.8 pg (27.0-31.2); Mean Corpuscular Volume 90.6 fl (80-94); Mean Platelet Volume 8.1 fl (7.4-10.4); Monocytes # 0.4 K/mm3 (0.1-1.0); Monocytes % 2.1 % (1.7-9.3); Neutrophils # 15.5 K/mm3 (1.8-7.8); Neutrophils % 92.8 % (37.0-80.0); Platelet Count 203 K/mm3 (142-424); Red Blood Count 3.89 M/mm3 (4.60-6.20); Red Cell Distribution Width 13.6 % (11.5-17.5); White Blood Count 16.7 K/mm3 (4.8-10.8)
[2017-07-21 09:05] LABS: MANUAL DIFFERENTIAL MANUAL DIFFERENTIAL (MANUAL DIFF)
[2017-07-21 09:27] LABS: Lymphocytes % 3 % (10-50); Monocytes % 4 % (2-9); Neutrophils % 93 % (42-76); Total Cells Counted 100
[2017-07-21 09:30] LABS: RBC Morphology Normal
[2017-07-21 09:31] LABS: Differential Comment SEE COMMEN; Platelet Estimate Clumped
[2017-07-21 10:20] LABS: Alanine Aminotransferase 193 U/L (12-78); Albumin Level 2.1 gm/dL (3.4-5.0); Albumin/Globulin Ratio 0.5 (1.1-1.8); Alkaline Phosphatase 169 U/L (46-116); Anion Gap 12.1 mEq/L (5-15); Aspartate Amino Transferase 168 U/L (15-37); Bilirubin,Total 1.1 mg/dL (0.2-1.0); Blood Urea Nitrogen 9 mg/dL (7-18); Calcium 7.9 mg/dL (8.5-10.1); Carbon Dioxide 26 mmol/L (21.0-32.0); Chloride 103 mmol/L (98-107); Creatinine Clearance Estimated 144 mL/min (0-300); Creatinine,Serum 1.14 mg/dL (0.70-1.30); Estimated Glomerular Filt Rate 72 ml/min (>60); GFR (African American) 87 ML/MIN (>60); Globulin 4.4 gm/dl (1.3-3.2); Glucose 131 mg/dL (74-106); Potassium 4.1 mmoL/L (3.5-5.1); Sodium 137 mmol/L (136-145); Total Protein,Serum 6.5 gm/dL (6.4-8.2)
--- NOTE | 2017-07-21 13:05 | HMH.DCSUM ---
General - General Admission date: 07/19/17 <Timur Guardado - 07/21/17 13:07> Discharge date: 07/21/17 <DarellamarjitAndra - 07/23/17 16:35> HPI HPI: Mr Ochoa is a 37 years old white male who has moved back to [place] this past week from [place] and has no primary care physician. He developed a fever 4 days ago and then eveloped body aches and diarrhea yesterday. The fever persisted and he began feeling weak. He thus presented to the urgent treatment center. Flu test was negative. He looked pale and weak so he was sent to the emergency department for further evaluation. In the ER he denied chest pain, shortness of breath, ST, RN, palpitations, abdominal pain and nausea or vomiting. He did admit to having a watery diarrhea. He noted that his stomach felt full. He denied having dysuria or hematuria. He was admitted for further evaluation and treatment. This AM he has had no further diarrhea; He has eaten most of his breakfast. <Timur Guardado - 07/21/17 13:07> Objective Vital signs: Temp Pulse Resp BP Pulse Ox 97.7 F 100 H 18 127/83 97 07/21/17 07:59 07/21/17 07:59 07/21/17 07:59 07/21/17 07:59 07/21/17 07:59 <DarellamarjitAndra - 07/23/17 16:35> Temp Pulse Resp BP Pulse Ox 97.7 F 100 H 18 127/83 97 07/21/17 07:59 07/21/17 07:59 07/21/17 07:59 07/21/17 07:59 07/21/17 07:59 <Timur Guardado - 07/21/17 13:07> Narrative: - Constitutional no acute distress - *Routine HEENT Exam Head: Present: normocephalic, atraumatic Eye: Present: PERRL. Absent: conjunctival icterus, scleral injection ENT: Present: mucous membranes moist, oropharynx clear, sinus tenderness - *Routine Respiratory Exam Present: CTA bilaterally (A&P) - *Routine Cardiovascular Exam Present: RRR - *Routine Abdominal Exam Present: soft, normoactive bowel sounds. Absent: tenderness - *Routine Extremities Exam Absent: cyanosis, clubbing, edema, full ROM, calf tenderness - *Routine Neurological Exam Present: alert, oriented X3 - Routine Psychiatric Exam Present: normal affect, normal thought process, cooperative <Andra Simpson - 07/23/17 16:35> Hospital Course Hospital Course: The patient had an abdominal x-ray and CXR showing nothing acute. He had a stool test positive for C. Diff. He was started on IVF's and flagyl. He improved quickly and his LFTs improved. He was stable to be discharged home on oral flagyl. <Andra Simpson - 07/23/17 16:35> Results Labs on day of discharge: Labs from last 24 hours 07/21/17 07/21/17 09:50 08:50 WBC 16.7 H RBC 3.89 L Hgb 11.6 L Hct 35.2 L MCV 90.6 MCH 29.8 MCHC 32.9 RDW 13.6 Plt Count 203 MPV 8.1 Neut % (Auto) 92.8 H Lymph % (Auto) 4.5 L [place] % (Auto) 2.1 Eos % (Auto) 0.5 Baso % (Auto) 0.1 Neut # (Auto) 15.5 H Lymph # (Auto) 0.8 [place] # (Auto) 0.4 Eos # (Auto) 0.1 Baso # (Auto) 0.0 Total Counted 100 Neutrophils % (Manual) 93 H Lymphocytes % (Manual) 3 L Monocytes % (Manual) 4 Differential Comment See commen Platelet Estimate Clumped RBC Morphology Normal Sodium 137 Potassium 4.1 D Chloride 103 Carbon Dioxide 26 D Anion Gap 12.1 BUN 9 Creatinine 1.14 Estimated Creat Clear 144 Estimated GFR 72 Est GFR ( Amer) 87 Glucose 131 H Calcium 7.9 L Total Bilirubin 1.1 H AST 168 H D ALT 193 H Alkaline Phosphatase 169 H Total Protein 6.5 Albumin 2.1 L D Globulin 4.4 H Albumin/Globulin Ratio 0.5 L <Timur Guardado - 07/21/17 13:07> DS: Diagnosis - Discharge Diagnosis (1) Clostridium difficile colitis Status: Acute (2) Dehydration Status: Acute (3) Elevated liver enzymes Status: Acute (4) Tachycardia Status: Acute <Andra Simpson - 07/23/17 16:35> (1) Clostridium difficile colitis Status: Acute (2) Dehydration Status: Acute
--- NOTE | 2017-07-21 13:08 | P.DS_ITS ---
General - General Admission date: 07/19/17 <Timur Guardado - 07/21/17 13:07> Discharge date: 07/21/17 <DarellamarjitAndra - 07/23/17 16:35> HPI HPI: Mr Ochoa is a 37 years old white male who has moved back to [place] this past week from [place] and has no primary care physician. He developed a fever 4 days ago and then eveloped body aches and diarrhea yesterday. The fever persisted and he began feeling weak. He thus presented to the urgent treatment center. Flu test was negative. He looked pale and weak so he was sent to the emergency department for further evaluation. In the ER he denied chest pain, shortness of breath, ST, RN, palpitations, abdominal pain and nausea or vomiting. He did admit to having a watery diarrhea. He noted that his stomach felt full. He denied having dysuria or hematuria. He was admitted for further evaluation and treatment. This AM he has had no further diarrhea; He has eaten most of his breakfast. <Timur Guardado - 07/21/17 13:07> Objective Vital signs: Temp Pulse Resp BP Pulse Ox 97.7 F 100 H 18 127/83 97 07/21/17 07:59 07/21/17 07:59 07/21/17 07:59 07/21/17 07:59 07/21/17 07:59 <DarellamarjitAndra - 07/23/17 16:35> Temp Pulse Resp BP Pulse Ox 97.7 F 100 H 18 127/83 97 07/21/17 07:59 07/21/17 07:59 07/21/17 07:59 07/21/17 07:59 07/21/17 07:59 <Timur Guardado - 07/21/17 13:07> Narrative: - Constitutional no acute distress - *Routine HEENT Exam Head: Present: normocephalic, atraumatic Eye: Present: PERRL. Absent: conjunctival icterus, scleral injection ENT: Present: mucous membranes moist, oropharynx clear, sinus tenderness - *Routine Respiratory Exam Present: CTA bilaterally (A&P) - *Routine Cardiovascular Exam Present: RRR - *Routine Abdominal Exam Present: soft, normoactive bowel sounds. Absent: tenderness - *Routine Extremities Exam Absent: cyanosis, clubbing, edema, full ROM, calf tenderness - *Routine Neurological Exam Present: alert, oriented X3 - Routine Psychiatric Exam Present: normal affect, normal thought process, cooperative <Andra Simpson - 07/23/17 16:35> Hospital Course Hospital Course: The patient had an abdominal x-ray and CXR showing nothing acute. He had a stool test positive for C. Diff. He was started on IVF's and flagyl. He improved quickly and his LFTs improved. He was stable to be discharged home on oral flagyl. <Andra Simpson - 07/23/17 16:35> Results Labs on day of discharge: Labs from last 24 hours 07/21/17 07/21/17 09:50 08:50 WBC 16.7 H RBC 3.89 L Hgb 11.6 L Hct 35.2 L MCV 90.6 MCH 29.8 MCHC 32.9 RDW 13.6 Plt Count 203 MPV 8.1 Neut % (Auto) 92.8 H Lymph % (Auto) 4.5 L [place] % (Auto) 2.1 Eos % (Auto) 0.5 Baso % (Auto) 0.1 Neut # (Auto) 15.5 H Lymph # (Auto) 0.8 [place] # (Auto) 0.4 Eos # (Auto) 0.1 Baso # (Auto) 0.0 Total Counted 100 Neutrophils % (Manual) 93 H Lymphocytes % (Manual) 3 L Monocytes % (Manual) 4 Differential Comment See commen Platelet Estimate Clumped RBC Morphology Normal Sodium 137 Potassium 4.1 D Chl
== END 2017-07-21 13:56 | disposition home or self-care (01) | DRG 373 ==
LOC: UTC 13:05 → ER 14:01 → 2ND 07-20 07:20
PROVIDERS: Nurse Practitioner Family; Admitting Provider Family Medicine; Emergency Provider Emergency Medicine; Visit Provider Nurse Practitioner Family
DX: A04.72 Enterocolitis due to Clostridium difficile, not specified as recurrent (principal); E86.0 Dehydration; R00.0 Tachycardia, unspecified; R74.8 Abnormal levels of other serum enzymes; Z83.3 Family history of diabetes mellitus; Z82.49 Family history of ischemic heart disease and other diseases of the circulatory system; Z84.1 Family history of disorders of kidney and ureter
CPT/HCPCS: 36415; 71046; 74021; 80053; 81001; 82550; 82553; 83605; 83735; 84439; 84443; 84484; 85007; 85025; 87040; 87077; 87086; 87186; 87486; 87507; 87581; 87633; 87798; 87804; 93005; 99284; G0378

== ENCOUNTER 2025-06-14 11:04 | Emergency (ER) | payer MEDICAID, SELFPAY ==
--- NOTE | 2025-06-14 11:08 | ED_ITS ---
<Statement entered by Kannan Moore MD - 06/14/25 13:38> Kannan Moore MD: I was consulted by the ROSA, and we discussed the complexity of the problems being addressed. I approve the treatment and management plan for this patient's care in the emergency department, thus performing a substantive portion of the medical decision making. Discharge Plan Disposition Patient Disposition: Home, Self-Care Condition: Good Prescriptions Prescriptions: New amoxicillin-pot clavulanate 875-125 mg tablet 1 tab PO BID Qty: 20 0RF No Action metronidazole 500 MG tablet 500 mg PO TID Qty: 30 0RF Referrals Follow up/Referrals: Nancy Light APRN [Primary Care Provider, Medical] - See instructions Activity Restrictions/Add. Instructions Additional Instructions/Restrictions: You were evaluated on an emergency basis. It is very important that you follow- up with your primary care provider and any specialist who we discussed within the next 2 days in order to better assess your health more comprehensively. For example, incidental findings on imaging or laboratory results that were performed today may be discovered, which do not require immediate medical care, but may impact your health in the future. If your symptoms worsen or persist, please return to the emergency department immediately for reassessment. Take all medications as prescribed. In queue for allowing me to participate in your health care, and I hope you feel better soon. Clinical Impressions Clinical Impression: Dental caries, Fracture of tooth, Gingivitis due to dental plaque Instructions Patient Instructions: DI for Dental Pain Print Language Print Language: Setswana Discharge ED Provider: Kannan Moore General Adult HPI General Chief complaint: Dental/Oral Stated complaint: swelling and Pain L side of jaw/teeth Time Seen by Provider: 06/14/25 11:08 History of Present Illness HPI narrative: 45-year-old male presents the emergency department with complaints of ongoing dental pain, swelling. Patient states he has not seen dentistry for over a year. He states that he was instructed he needed multiple teeth extracted however the last time they tried a year ago they were unable to extract his teeth and he never followed up again after that. He states he has not been on a ny recent antibiotics. Related Data Previous Rx's ?Medication ?Instructions ?Recorded metronidazole 500 mg tablet 500 mg PO TID #30 tabs amoxicillin 875 mg-potassium 1 tab PO BID #20 tabs clavulanate 125 mg tablet Allergies Allergy/AdvReac Type Severity Reaction Status Date / Time No Known Allergies Allergy Verified 07/19/17 13:23 [facility] Disclaimer: The information contained in this section may have been updated after the patient was seen, as this information can be updated by other users. Social History Smoking Status: Never smoker second hand exposure: No alcohol intake: never current occupational status: unemployed Travel in the last 8 weeks?: Inside the [place] household members: friend(s) and other housing: house Other Medical History Have you received the Flu Vaccine for this season: No Have you received the Pneumonia Vaccine: No ROS Obtained: Yes other ENT Ears, Nose, Mouth, and Throat: Reports dental pain and Reports halitosis Physical Exam Narrative Physical exam: General: Awake, aware, in no acute distress HEENT: Patient with numerous fractured teeth and dental caries. Patient also has significant gingivitis with tartar buildup. No obvious abscess present. CV: RRR, no murmurs, rubs, or gallops Pulm: CTA bilaterally with no rhonchi, rales, wheezes ABD: Nontender, no swelling, guarding, or rebound tenderness Psych: Anxious General General appearance: alert Respiratory Respiratory exam: Present normal lung sounds bilaterally Cardiovascular Cardiovascular exam: Present tachycardia Neurological Exam Neurological exam: Present alert Medical Decision Making Medical Records Screening: Per USPSTF and CDC recommendations, given the prevalence of disease in our region, it is our hospital?s policy to screen for HIV and viral Hepatitis for all patients aged 18 and over and those with ongoing risk factors. Good Inquiry Pt receiving controlled substance: No Vital Signs: 06/14/25 11:12 06/14/25 11:27 Temperature 99.6 F Temperature Source Oral Pulse Rate 101 H Pulse Rate [Right Radial] 125 H Respiratory Rate 15 Blood Pressure 137/89 Blood Pressure [Right Arm] 141/100 H Blood Pressure Mean [Right Arm] 113 Blood Pressure Source [Right Arm] Automatic Cuff Blood Pressure Position [Right Arm] Supine 02 Sat by Pulse Oximetry 98 94 L Oxygen Delivery Method Room Air Room Air Orders (Tests/Meds): ED MEDICATIONS Generic Name Dose Route Start Last Admin Trade Name Freq PRN Reason Stop Dose Admin Lidocaine HCl 15 ml 06/14/25 11:27 Lidocaine 2% Viscous Hellen 15ml Udc PO 06/14/25 11:28 ONCE ONE ORDERS Category Date Time Status HIV Combo Stat Lab 06/14/25 11:18 Ordered Hepatitis C Ab Qual. W/ RFX Stat Lab 06/14/25 11:18 Ordered Medical Decision Narrative: Initial impression of presenting illness: 45-year-old female presents emergency department complaints of dental pain and swelling for the past several days. He states that he was instructed that he need numerous teeth extracted however he has not followed up with dentistry over the past year. He states approximately 1 year ago they attempted to distract his teeth but were unable to and he never returned for follow-up. He denies any recent antibiotic use. Differential diagnosis includes but is not limited to: Gingivitis, dental abscess, fractured teeth, dental caries Patient arrives hemodynamically stable, afebrile, without respiratory distress with vital signs interpreted by myself. Initial physical exam reveals significant gingivitis and tartar buildup. Patient also has numerous fractured teeth with dental caries. No obvious abscess is present. Patient is anxious on exam. Disposition: Advised patient that we will treat with antibiotics for infection control as well as dental balls for pain control. Informed him he can also continue with Tylenol and ibuprofen as needed for pain control. Stressed the importance of him following up with dentistry as today's medications were only treat the symptoms and not the root cause of his problems. I discussed with him [facility]'s walk-in dental clinic. I also recommended that he contact customer service with his insurance to find out which dental carriers are covered by his insurance plan. Directed him to return to the emergency department any new or worsening symptoms. Patient is agreeable to plan of care. Critical Care Critical Care Time Critical Care Time: No
[2025-06-14 11:12] VITALS: BP 141/100; PULSE 125; RESP 15; TEMP 37.6; O2SAT 98; BMI 41.3
[2025-06-14 11:27] VITALS: BP 137/89; PULSE 101; O2SAT 94
[2025-06-14 11:34] VITALS: BP 137/89; PULSE 100; RESP 18; TEMP 36.9; O2SAT 95
[2025-06-14] MEDS: LIDOCAINE 2% VISCOUS SOL 15ML UDC 15 ML PO (11:34)
--- OUTSIDE RECORDS SUMMARY | 2025-06-14 13:10 | XMS_ITS | Clinical Summary ---
Author Organization [facility] Address [address] [place] [address] Phone Care Team Providers Care Globe Changer Name Role Phone Nancy Light APRN Primary Care Provider [phone] Allergies Active Allergy Reactions Criticality Noted Date Comments Atorvastatin Myalgia 03/25/2018 Medications amLODIPine (NORVASC) 10 mg Oral TabletIndications :Essential hypertension Take 1 Tablet by mouth daily. 90 Tablet 3 5 Active FLUoxetine (PROZAC) 20 mg Oral CapsuleIndication s:Persistent depressive disorder Take 1 Capsule by mouth daily. 90 Capsule 3 5 Active Active Problems Problem Noted Date Diagnosed Date Statin myopathy 02/08/2025 Prediabetes 02/08/2025 Persistent depressive disorder 02/08/2025 Essential hypertension 01/15/2024 Dyslipidemia 03/25/2018 Overview (02/03/2019): lipitor and zocor intolerance. Reviewed diet modifications. Elevated TSH 03/25/2018 Overview (02/03/2019): Off synthroid. Recheck and adjust accordingly Mood disorder 09/16/2017 Overview (03/25/2018): OCD tendency, anxiety, occasional depression. On prozac 40mg daily. Stable. Hx of pleural empyema 08/02/2017 Overview (09/16/2017): Resolved. Cleared by reefer truck driver. SVT (supraventricular tachycardia) 07/31/2017 Overview (02/03/2019): Stopped Toprol. No breakthrough symptoms. Results for orders placed during the hospital encounter of 07/28/17 EC ECHOCARDIOGRAM COMPLETE W DOPPLER AND COLOR FLOW MAPPING Impression CONCLUSIONS Left ventricular ejection fraction is in the normal range. No evidence of valvular vegetation. Hx of Clostridium difficile infection 07/28/2017 Overview (09/16/2017): On Probiotics. Sx improved. Down to once daily loose stool Resolved Problems Problem Noted Date Diagnosed Date Resolved Date Obesity, Class III, BMI 40-4 9.9 (morbid obesity) 02/14/2020 02/08/2025 Overview (02/14/2020): Diet/exercise. Obesity, Class II, BMI 35-39.9 02/03/2019 02/14/2020 Overview (02/03/2019): Wt Readings from Last 3 Encounters: 02/03/19 252 lb (114.3 kg) 04/22/18 243 lb 9.6 oz (110.5 kg) 03/25/18 245 lb (111.1 kg) Improve with diet and exercise. Obesity, Class I, BMI 30-34.9 09/16/2017 03/25/2018 Overview (09/16/2017): Recent extended hospital stay. Discussed diet modifications, gradual increase in exercise. History of pneumonia 08/02/2017 025 Overview (09/16/2017): Jul 2016. Asymptomatic. Lungs clear. Finishing 14-day Augmentin from liver abscess. Edema 07/31/2017 03/25/2018 Pleural effusion 07/31/2017 03/25/2018 Hyponatremia 07/28/2017 09/16/2017 Leukocytosis 07/28/2017 09/16/2017 Dehydration 07/28/2017 09/16/2017 Elevated LFTs 07/28/2017 07/12/2019 Overview (03/25/2018): Secondary to liver abscess. Avoid tylenol. Cholesterol control. Liver abscess 02/03/2019 Overview (03/25/2018): Dx'd Jul 28 2017. Etiology from dental. Completed 6 wks of IV zosyn. Finishing 14-day Augmentin. No fever. No GI sx. Has resolved. Surgical History Surgery Date Site/Laterality Comments TYMPANOSTOMY TUBE PLACEMENT TONSILLECTOMY THORACOSCOPY 08/05/2017 Right BRONCHOSCOPY RIGHT VIDEO ASSISTED THORACOSCOPY COMPLETE DECORTICATION ; Surgeon: Adrian Neff MD; Location: [facility]; Service: Thoracic BRONCHOSCOPY 08/05/2017 Surgeon: Adrian Neff MD; Location: [facility]; Service: Thoracic EAR SURGERY tubes at 5yo CIRCUMCISION Medical History Medical History Date Comments Anxiety C. difficile diarrhea Depression Liver abscess SVT (supraventricular tachycardia) Family History Medical History Relation Name Comments No Known Problems Brother Alcohol Abuse Father COPD Father No Known Problems Maternal Grandfather No Known Problems Maternal Grandmother Diabetes Maternal Uncle Heart Disease Mother High Blood Pressure Mother Other Mother some form lung disease Heart Attack Paternal Grandfather No Known Problems Paternal Grandmother Cancer Paternal Uncle Allergies Neg Hx Bleeding Prob Neg Hx Hearing Loss Neg Hx Migraines Neg Hx Thyroid Disease Neg Hx Relation Name Status Comments Brother Alive Father Alive Maternal Grandfather Maternal Grandmother Maternal Uncle Mother Paternal Grandfather Paternal Grandmother Paternal Uncle Social History Tobacco Use Types Packs/Day Years Used Date Smoking Tobacco: Never Smokeless Tobacco: Never Tobacco Cessation:Counseling Given: Yes Alcohol Use Standard Drinks/Week Comments No 0 (1 standard drink = 0.6 oz pur e alcohol) <couple drinks yearly PHQ-2 Answer Date Recorded PHQ-2 Total Score 0 02/08/2025 Sexually Active Control Partners Comments Yes Female Sex and Gender Information Value Date Recorded Sex Assigned at Not on file Legal Sex Male 7:54 AM EDT Gender Identity Not on file Sexual Orientation Not on file Last Filed Vital Signs Vital Sign Reading Time Taken Comments Blood Pressure 140/100 02/08/2025 1:02 PM EDT Pulse 97 02/08/2025 1:02 PM EDT Temperature 36.7 C (98.1 F) 02/08/2025 1:02 PM EDT Respiratory Rate 20 02/08/2025 1:02 PM EDT Oxygen Saturation 96% 02/08/2025 1:02 PM EDT Inhaled Oxygen Concentration - - Weight 116.5 kg (256 lb 12.8 oz) 02/08/2025 1:02 PM EDT Height 175.3 cm (5' 9 ) 02/08/2025 1:02 PM EDT Body Mass Index 37.92 02/08/2025 1:02 PM EDT Plan of Treatment Health Maintenance Due Date Last Done Comments DTaP/TDaP/Td (1 - Tdap) 01/13/1999 Hepatitis B Vaccine (1 of 3 - 19+ 3-dose series) 01/13/1999 Cologuard 01/13/2025 Colon Cancer Screening 01/13/2025 Colonoscopy 01/13/2025 FIT 01/13/2025 Sigmoidoscopy 01/13/2025 Virtual Colonography 01/13/2025 COVID-19 Vaccine (1 - 2024-2 6 season) 2025 Influenza Vaccine (#1) 2025 8 (Declined) Annual Wellness Exam 02/08/2026 02/08/2025 Meningococcal B Vaccine Aged Out No l onger eligible based on patient's age to complete this topic Pneumococcal Vaccine 0-49 Aged Out No longer eligible based on patient's age to complete this topic Goals Goal Patient Goal Type Associated Problems Recent Progress Patient-Stated? Author Blood Pressure < 140/90 Blood Pressure 140/100(02/08 1:02 PM EDT) No Wilfred Ruggiero MD Maintain a healthy diet, exercise regularly and maintain an ideal body weight General No Kristie Louie CCMA Insurance [facility] PLAN BY [employer] Advance Directives For more information, please contact: [phone] * Full Code (Latest Code Status on File) Date Activated Date Inactivated Comments 08/03/2017 10:55 AM 08/22/2017 8:58 AM * Full Code Date Activated Date Inactivated Comments 07/29/2017 11:19 AM 08/03/2017 10:17 AM Care Teams Globe Changer Relationship Specialty Start Date End Date Nancy [place] [address] [place] [address] PCP - General Nurse Practitioner-Family 09/16/17
== END 2025-06-14 11:39 | disposition home or self-care (01) ==
LOC: ER 11:34
PROVIDERS: Emergency Provider Student in an Organized Health Care Education/Training Program; PCP Nurse Practitioner
DX: R22.0 Localized swelling, mass and lump, head (principal); K02.9 Dental caries, unspecified; K05.10 Chronic gingivitis, plaque induced
CPT/HCPCS: 99283